=== PATIENT | female | born 1975 | race Caucasian/White ===

== ENCOUNTER 2022-11-21 13:16 | Outpatient (REF) | payer MEDICAID, SELFPAY ==
[2022-11-21 15:12] LABS: Abs Immature Grans 0.02 10^3/uL (0.0-0.06); Absolute Basophil Count 0.07 10^3/uL (0.0-0.2); Absolute Eosinophil Count 0.18 10^3/uL (0.0-0.7); Absolute Lymphocyte Count 2.67 10^3/uL (1.2-3.4); Absolute Monocyte Count 0.46 10^3/uL (0.1-0.8); Eosinophils % 2.6; HCT 43.7 % (36.0-46.0); HGB 14.6 g/dL (11.2-15.7); Immature Grans % 0.3; Lymphocytes % 38.1; MCH 28.6 pg (27.0-33.0); MCHC 33.4 % (32.0-36.0); MCV 86 fL (80-95); MPV 11.6 fL (8.0-11.0); Monocytes % 6.6; Neutrophils % 51.4; Platelet Count 307 10^3/uL (130-400); RBC 5.11 10^6/uL (3.93-5.22); RDW-SD 37.8 fL
[2022-11-21 16:00] LABS: Hemoglobin A1C 6.1 % (<5.7)
[2022-11-21 16:33] LABS: ALT 20 U/L (14-59); AST 17 U/L (15-37); Albumin 4.1 g/dL (3.4-5.0); Alkaline Phosphatase 85 U/L (46-116); Anion Gap 7.8 mmol/L (3-11); BUN 12 mg/dL (7-18); Bilirubin, Total 0.5 mg/dL (0.2-1.0); CO2 30.2 mmol/L (21.0-32.0); Calcium 9.4 mg/dL (8.5-10.1); Calculated LDL 132 mg/dL (<100); Chloride 103 mmol/L (98-107); Cholesterol 208 mg/dL (<200); Estimated GFR 70.36 (mL/min/1.73m2); Glucose 105 mg/dL (74-106); HDL Cholesterol 49 mg/dL (40-60); Magnesium 2.1 mg/dL (1.8-2.4); Potassium 4.5 mmol/L (3.5-5.1); Sodium 141 mmol/L (136-145); TSH (W/Ref FT4) 1.13 uIU/mL (0.36-3.74); Total Protein 7.4 g/dL (6.4-8.2); Triglyceride 139 mg/dL (<150)
== END 2022-11-21 13:17 | disposition home or self-care (01) ==
LOC: NCHCN 13:16
PROVIDERS: Visit Provider Nurse Practitioner Family
DX: R40.0 Somnolence (principal); E66.8 Other obesity; Z68.42 Body mass index [BMI] 45.0-49.9, adult; R73.09 Other abnormal glucose; R19.7 Diarrhea, unspecified; M79.662 Pain in left lower leg; M79.661 Pain in right lower leg
CPT/HCPCS: 80053; 80061; 83036; 83735; 84443; 85025

== ENCOUNTER 2023-11-07 16:15 | Outpatient (REF) | payer OTHER, SELFPAY ==
[2023-11-07 18:32] LABS: Abs Immature Grans 0.02 10^3/uL (0.0-0.06); Absolute Basophil Count 0.06 10^3/uL (0.0-0.2); Absolute Lymphocyte Count 3.63 10^3/uL (1.2-3.4); Absolute Monocyte Count 0.52 10^3/uL (0.1-0.8); Absolute Neutrophil Count 4.05 10^3/uL (1.2-6.7); Basophils % 0.7; Eosinophils % 1.2; HCT 39.7 % (36.0-46.0); HGB 13.4 g/dL (11.2-15.7); Immature Grans % 0.2; Lymphocytes % 43.3; MCH 29.3 pg (27.0-33.0); MCHC 33.8 % (32.0-36.0); MCV 87 fL (80-95); MPV 10.8 fL (8.0-11.0); Monocytes % 6.2; Neutrophils % 48.4; Platelet Count 336 10^3/uL (130-400); RBC 4.58 10^6/uL (3.93-5.22); RDW 13.1 % (11.7-14.6); WBC 8.38 10^3/uL (4.4-10.8)
[2023-11-07 18:49] LABS: ALT 20 U/L (14-59); AST 22 U/L (15-37); Albumin 4.2 g/dL (3.4-5.0); Alkaline Phosphatase 93 U/L (46-116); Anion Gap 8.5 mmol/L (3-11); BUN 13 mg/dL (7-18); Bilirubin, Total 0.5 mg/dL (0.2-1.0); CO2 29.5 mmol/L (21.0-32.0); Calcium 9.3 mg/dL (8.5-10.1); Chloride 104 mmol/L (98-107); Estimated GFR 69.93 (mL/min/1.73m2); Glucose 94 mg/dL (74-106); Magnesium 1.9 mg/dL (1.8-2.4); Potassium 4.3 mmol/L (3.5-5.1); Sodium 142 mmol/L (136-145); Total Protein 7.5 g/dL (6.4-8.2)
[2023-11-07 18:54] LABS: Hemoglobin A1C 6.3 % (<5.7)
== END 2023-11-07 16:16 | disposition home or self-care (01) ==
LOC: NCHCN 16:15
PROVIDERS: Visit Provider Nurse Practitioner Family
DX: F41.8 Other specified anxiety disorders (principal); R73.03 Prediabetes; R25.9 Unspecified abnormal involuntary movements; E66.01 Morbid (severe) obesity due to excess calories; Z68.42 Body mass index [BMI] 45.0-49.9, adult
CPT/HCPCS: 80053; 83036; 83735; 84443; 85025

== ENCOUNTER 2024-02-26 19:19 | Outpatient (REF) | payer OTHER, SELFPAY ==
[2024-02-26 18:38] LABS: Abs Immature Grans 0.02 10^3/uL (0.0-0.06); Absolute Basophil Count 0.05 10^3/uL (0.0-0.2); Absolute Eosinophil Count 0.19 10^3/uL (0.0-0.7); Absolute Lymphocyte Count 3.96 10^3/uL (1.2-3.4); Absolute Monocyte Count 0.55 10^3/uL (0.1-0.8); Absolute Neutrophil Count 3.41 10^3/uL (1.2-6.7); Basophils % 0.6 %; Eosinophils % 2.3 %; HCT 44.7 % (36.0-46.0); HGB 14.4 g/dL (11.2-15.7); Immature Grans % 0.2 %; Lymphocytes % 48.4 %; MCH 27.4 pg (27.0-33.0); MCHC 32.2 % (32.0-36.0); MCV 85 fL (80-95); MPV 11.7 fL (8.0-11.0); Monocytes % 6.7 %; Neutrophils % 41.8 %; Platelet Count 283 10^3/uL (130-400); RBC 5.26 10^6/uL (3.93-5.22); RDW 12.3 % (11.7-14.6); RDW-SD 38.2 fL; WBC 8.18 10^3/uL (4.4-10.8)
[2024-02-26 19:09] LABS: ALT 24 U/L (14-59); AST 20 U/L (15-37); Albumin 4.5 g/dL (3.4-5.0); Alkaline Phosphatase 100 U/L (46-116); Amylase 30 U/L (25-115); Anion Gap 9.6 mmol/L (3-11); BUN 8 mg/dL (7-18); Bilirubin, Total 0.46 mg/dL (0.2-1.0); CO2 29.4 mmol/L (21.0-32.0); CREATININE 0.9 mg/dL (0.55-1.02); Calcium 9.7 mg/dL (8.5-10.1); Chloride 103 mmol/L (98-107); Estimated GFR 78.86 (mL/min/1.73m2); Glucose 90 mg/dL (74-106); Lipase 54 U/L (16-77); Potassium 4.1 mmol/L (3.5-5.1); Sodium 142 mmol/L (136-145); TSH (W/Ref FT4) 1.22 uIU/mL (0.36-3.74); Total Protein 7.7 g/dL (6.4-8.2)
[2024-02-27 19:22] LABS: Parathyroid Hormone,Intact 75 pg/mL (19-88)
== END 2024-02-26 19:20 | disposition home or self-care (01) ==
LOC: NCHCN 19:19
PROVIDERS: Visit Provider Nurse Practitioner Family
DX: R10.31 Right lower quadrant pain (principal); R25.9 Unspecified abnormal involuntary movements
CPT/HCPCS: 80053; 83690; 82150; 83970; 84443; 85025